=== PATIENT | female | born 1970 | race Caucasian/White ===

== ENCOUNTER → 2016-10-30 | Outpatient (CLI) | payer OTHER ==
--- NOTE | 2016-10-30 11:06 | XR ---
EXAMINATION TYPE: XR lumbosacral spine min 4V DATE OF EXAM: 10/30/2016 10:48 AM COMPARISON: NONE HISTORY: Low back pain TECHNIQUE: 5 view lumbar spine FINDINGS: Facets are normal. Disc heights are preserved. Vertebral body heights are preserved. Mild s pondylosis is present. There is side bending towards the left. IMPRESSION: 1. No acute osseous abnormality.
== END | disposition home or self-care (01) ==
LOC: RADXRMAIN 10:20
PROVIDERS: ATTEND Family Medicine
DX: M54.5 Low back pain (principal)
CPT/HCPCS: 72110

== ENCOUNTER 2016-11-11 16:59 | Emergency (ER) | payer OTHER ==
[2016-11-11 17:11] VITALS: BP 158/100; PULSE 68; RESP 16; TEMP 99.7
[2016-11-11] MEDS ORDERED: KETOROLAC 60 MG/2 ML VIAL IM STA (18:17)
--- NOTE | 2016-11-11 18:19 | ED ---
General Adult HPI - General Chief complaint: Back Pain/Injury Stated complaint: Back Pain, Abd pain, headache Time Seen by Provider: 11/11/16 17:55 Source: patient, RN notes reviewed Mode of arrival: wheelchair Limitations: no limitations - History of Present Illness Initial comments: Patient for a 46-year-old female who presents emergency room today with chief complaint of chronic pain. She does admit to chronic back, abdominal, and migraine headaches. She states that she's had all these symptoms over the last several years. She states she has follow-up with both specialist and her family doctor. States that she has been using medications as prescribed. She states that she is been having increased pain in her back also have an abscess diarrhea. Doesn't that history IBS. Admits to headaches consistent with her migraines. Patient's that bedside stating that he brought her here to the emergency room today she did not white count. States that she seemed to be more pain today. Patient admits that there is no medication that seems to help her. She states she's also had some medications here in the hospital which seemed to do little to help her. She denies any bowel or bladder incontinence retention. Denies any saddle anesthesia. States she is scheduled have a new MRI of her back next week. Injury or trauma or falls. Denies any other complaints. She states she states all symptoms are chronic and there is nothing new today. Patient denies any recent fever, chills, shortness of breath , chest pain, nausea or vomiting, dysuria or hematuria, constipation, headaches or visual changes, or any other complaints. - Related Data Home Medications Medication Instructions Recorded Confirmed Albuterol Nebulized [Ventolin 1 applic INHALATION DIRECTED PRN 03/28/1508/21 Nebulized] Albuterol Sulfate [Proair Hfa] 2 puff INHALATION DIRECTED PRN 03/28/15 Baclofen [Lioresal] 10 mg PO BID 03/28/15 08/22/15 Dicyclomine [Bentyl] 20 mg PO TID 03/28/15 08/22/15 Donepezil [Aricept] 10 mg PO BID 03/28/15 08/22/15 Ibuprofen [Motrin] 800 mg PO BID 03/28/15 08/22/15 Loperamide [Imodium] 2 mg PO BID 03/28/15 08/22/15 OXcarbazepine [Trileptal] 150 mg PO BID 03/28/15 08/22/15 OXcarbazepine [Trileptal] 300 mg PO BID 03/28/15 08/22/15 Primidone [Mysoline] 100 mg PO BID 03/28/15 08/22/15 Propranolol HCl [Inderal LA] 80 mg PO QAM 03/28/15 08/22/15 SUMAtriptan SUCCINATE [Imitrex] 100 mg PO DIRECTED PRN 03/28/15 08/22/15 Vilazodone HCl [Viibryd] 40 mg PO HS 03/28/15 08/22/15 clonazePAM [KlonoPIN] 0.5 mg PO TID 03/28/15 08/22/15 rOPINIRole HCL [Requip] 0.5 mg PO HS 03/28/15 08/22/15 risperiDONE [RisperDAL] 2 mg PO HS 03/28/15 08/22/15 Previous Rx's Medication Instructions Recorded Famotidine [Pepcid] 20 mg PO BID #30 tablet 08/22/15 Naproxen [Naprosyn] 500 mg PO Q12HR #60 tab 08/22/15 hydrOXYzine HCL [Atarax] 25 mg PO TID #30 tab 08/22/15 predniSONE 50 mg PO DAILY #5 tab 08/22/15 Allergies Allergy/AdvReac Type Severity Reaction Status Date / Time varenicline tartrate Allergy Hallucinati Verified 11/11/16 17:11 [From Chantix] ons Review of Systems ROS Statement: Those systems with pertinent positive or pertinent negative responses have been documented in the HPI. ROS Other: All systems not noted in ROS Statement are negative. Past Medical History Past Medical History: Fibromyalgia, Seizure Disorder Additional Past Medical History / Comment(s): chronic back pain,migraine ,RSD, DDD,IBS History of Any Multi-Drug Resistant Organisms: None Reported Past Surgical History: Orthopedic Surgery, Tubal Ligation Additional Past Surgical History / Comment(s): right ankle Past Psychological History: Bipolar, Depression Smoking Status: Current every day smoker Past Alcohol Use History: None Reported Past Drug Use History: Marijuana General Exam - General Exam Comments Initial Comments: General: The patient is awake and alert, in no distress, and does not appear acutely ill. Eye: Pupils are equal, round and reactive to light, extra-ocular movements are intact. No nystagmus. There is normal conjunctiva bilaterally. No signs of icterus. Ears, nose, mouth and throat: There are moist mucous membranes and no oral lesions. Neck: The neck is supple, there is no tenderness or JVD. Cardiovascular: There is a regular rate and rhythm. No murmur, rub or gallop is appreciated. Respiratory: Lungs are clear to auscultation, respirations are non-labored, breath sounds are equal. No wheezes, stridor, rales, or rhonchi. Musculoskeletal: Normal ROM, no tenderness. Strength 5/5. Sensation intact. Pulses equal bilaterally 2+. Neurological: A&O x 3. CN II-XII intact, There are no obvious motor or sensory deficits. Coordination appears grossly intact. Speech is normal. Skin: Skin is warm and dry and no rashes or lesions are noted. Psychiatric: Cooperative, appropriate mood & affect, normal judgment. Limitations: no limitations Course Vital Signs 11/11/16 17:07 Temperature 99.7 F H Pulse Rate 68 Respiratory 16 Rate Blood Pressure 158/100 O2 Sat by Pulse 99 Oximetry Medical Decision Making - Medical Decision Making PATIENT have a patient here the emergency room for treatment options here in the emergency room. Patient does admit to a chronic symptoms that is nothing new. She is advised that she does need follow-up family doctor and also specialist. She states she does have an appointment set up. Patient states she is willing to try Toradol shot for her pain and symptoms. She is advised return for any other concerns. Disposition Clinical Impression: Chronic pain Disposition: HOME SELF-CARE Condition: Good Instructions: Chronic Back Pain (ED) Additional Instructions: Please follow-up with family doctor in the next 2 days. Please return to emergency room if the symptoms increase or worsen or for any other concerns. Referrals: Saul Muniz MD [Primary Care Provider] - 1-2 days Time of Disposition: 18:18
== END 2016-11-11 19:09 | disposition home or self-care (01) ==
LOC: EC 16:59
DX: G89.29 Other chronic pain (principal); M54.9 Dorsalgia, unspecified; R10.9 Unspecified abdominal pain; R51 Headache; G40.909 Epilepsy, unspecified, not intractable, without status epilepticus; F31.9 Bipolar disorder, unspecified; F17.200 Nicotine dependence, unspecified, uncomplicated; Z79.1 Long term (current) use of non-steroidal anti-inflammatories (NSAID); Z79.899 Other long term (current) drug therapy; Z88.8 Allergy status to other drugs, medicaments and biological substances
CPT/HCPCS: 99283; 96372; J1885

== ENCOUNTER → 2016-11-18 | Outpatient (CLI) | payer OTHER ==
--- NOTE | 2016-11-18 23:20 | MR ---
EXAMINATION TYPE: MR lumbar spine wo con DATE OF EXAM: 11/18/2016 COMPARISON: 07/19/2015 HISTORY: Severe back pain for a couple of years. Previous MRI on PACS 07/2015 TECHNIQUE: Multiplanar, multisequence images of the lumbar spine were acquired. Findings Lumbar vertebra have normal alignment. There is narrowing at L4-5 and L5-S1 disc spaces with decrease d signal in the disks. There is mild posterior disc herniation at L5-S1 into the spinal canal. Lumbar nerve roots appear normal. There is mild narrowing of the L4-5 and L5-S1 neural foramina due to disc space narrowing and facet arthropathy. There is no paraspinal mass. There is no compression fracture . I see no focal bone destruction. There is mild patchy decreased signal in the inferior L5 vertebral body probably due to sclerosis and reactive changes. IMPRESSION: Spondylotic changes at L4-5 and L5-S1. Small anterior and posterior disc herniation at L5-S1 without significant impingement on the spinal canal. There is mild neural foraminal narrowing at L4-5 and L5- S1 on the left side more than the right due to disc space narrowing and facet arthropathy. This is si milar to old exam. No fracture.
== END | disposition home or self-care (01) ==
LOC: RADMRIMAIN 20:34
PROVIDERS: ATTEND Family Medicine
DX: M48.06 Spinal stenosis, lumbar region (principal); M99.73 Connective tissue and disc stenosis of intervertebral foramina of lumbar region; M47.816 Spondylosis without myelopathy or radiculopathy, lumbar region; M46.96 Unspecified inflammatory spondylopathy, lumbar region
CPT/HCPCS: 72148

== ENCOUNTER 2016-12-05 04:45 | Emergency (ER) | payer OTHER ==
[2016-12-05 04:49] VITALS: TEMP 98.1
[2016-12-05] MEDS ORDERED: SODIUM CHLORIDE 0.9% 1,000 ML IV STA (05:04)
[2016-12-05] MEDS ORDERED: diphenhydrAMINE 50 MG/ML 1 ML VIAL IVP STA (05:04)
[2016-12-05] MEDS ORDERED: RX INFO: IV CONTRAST WAS GIVEN 1 EACH MISC MISCELLANE PRN (05:04)
[2016-12-05] MEDS ORDERED: FAMOTIDINE 20 MG/2 ML VIAL IV STA (05:04)
[2016-12-05] MEDS ORDERED: methylPREDNISolone SOD SUCCI 125 MG/2 ML VIAL IV STA (05:04)
--- NOTE | 2016-12-05 05:06 | ED ---
General Adult HPI - General Chief complaint: ENT Stated complaint: FACIAL SWELLING Time Seen by Provider: 12/05/16 05:02 Source: patient, RN notes reviewed, old records reviewed Mode of arrival: wheelchair Limitations: no limitations - History of Present Illness Initial comments: This is a 46-year-old female here for evaluation. This patient is safe for evaluation of pain and edema, swelling. Patient has right-sided facial swelling. She woke with the symptoms 9, patient denies any injury. She denies fevers, nausea pain mild anterior pain. Patient states she is having difficulty sleeping cololysis difficulty sleeping, is very restless, states that she noticed her right third patient for full is very swollen, tingling. She also having tingling in her right hand right arm, tingling in her right hip right leg. No change in medications - Related Data Home Medications Medication Instructions Recorded Confirmed Albuterol Sulfate [Proair Hfa] 2 puff INHALATION RT-Q6H PRN 03/28/15 12/05/16 Dicyclomine [Bentyl] 40 mg PO QID 03/28/15 12/05/16 Loperamide [Imodium] 4 mg PO QID PRN 03/28/15 12/05/16 Primidone [Mysoline] 100 mg PO BID 03/28/15 12/05/16 SUMAtriptan SUCCINATE [Imitrex] 100 mg PO BID PRN 03/28/15 12/05/16 clonazePAM [KlonoPIN] 0.5 mg PO TID 03/28/15 12/05/16 rOPINIRole HCL [Requip] 0.5 mg PO HS 03/28/15 12/05/16 Cyclobenzaprine [Flexeril] 10 mg PO TID 11/11/16 12/05/16 Desvenlafaxine Succinate [Pristiq] 100 mg PO DAILY 11/11/16 12/05/16 Esomeprazole Magnesium [NexIUM] 40 mg PO DAILY 11/11/16 12/05/16 Gabapentin [Neurontin] 300 mg PO TID 11/11/16 12/05/16 Propranolol HCl [Propranolol HCl 60 mg PO DAILY 11/11/16 12/05/16 ER] HYDROcodone/APAP 5-325MG [[place] 1 tab PO Q6HR PRN 12/05/16 12/05/16 5-325] Allergies Allergy/AdvReac Type Severity Reaction Status Date / Time varenicline tartrate AdvReac Hallucinati Verified 12/05/16 04:49 [From Chantix] ons Review of Systems ROS Statement: Those systems with pertinent positive or pertinent negative responses have been documented in the HPI. ROS Other: All systems not noted in ROS Statement are negative. Past Medical History Past Medical History: Fibromyalgia, Seizure Disorder Additional Past Medical History / Comment(s): chronic back pain,migraine ,RSD, DDD,IBS History of Any Multi-Drug Resistant Organisms: None Reported Past Surgical History: Orthopedic Surgery, Tubal Ligation Additional Past Surgical History / Comment(s): right ankle Past Psychological History: Bipolar, Depression Smoking Status: Current every day smoker Past Alcohol Use History: None Reported Past Drug Use History: Marijuana General Exam - General Exam Comments Initial Comments: Likely swelling of right parotid gland Limitations: no limitations General appearance: alert, in no apparent distress Head exam: Present: atraumatic, normocephalic, normal inspection, other (right facial edema) Eye exam: Present: normal appearance, PERRL, EOMI. Absent: scleral icterus, conjunctival injection, periorbital swelling ENT exam: Present: normal exam, mucous membranes moist Neck exam: Present: normal inspection. Absent: tenderness, meningismus, lymphadenopathy Respiratory exam: Present: normal lung sounds bilaterally. Absent: respiratory distress, wheezes, rales, rhonchi, stridor Cardiovascular Exam: Present: regular rate, normal rhythm, normal heart sounds. Absent: systolic murmur, diastolic murmur, rubs, gallop, clicks GI/Abdominal exam: Present: soft, normal bowel sounds. Absent: distended, tenderness, guarding, rebound, rigid Extremities exam: Present: normal inspection, full ROM, normal capillary refill. Absent: tenderness, pedal edema, joint swelling, calf tenderness Back exam: Present: normal inspection Neurological exam: Present: alert, oriented X3, CN II-XII intact Psychiatric exam: Present: normal affect, normal mood Skin exam: Present: warm, dry, intact, normal color. Absent: rash Course Vital Signs 12/05/16 12/05/16 04:46 06:03 Temperature 98.1 F Pulse Rate 87 73 Respiratory 24 18 Rate Blood Pressure 106/57 123/73 O2 Sat by Pulse 98 96 Oximetry EKG Findings - EKG Comments: EKG Findings:: EKG shows normal sinus rhythm rate of 88, [place] 166, QRS 94, QTC 488 Medical Decision Making - Medical Decision Making 46 female in the ER for evaluation of right-sided facial swelling, acute parotitis. Patient will be admitted for IV antibiotics - Lab Data Result diagrams: 12/05/16 05:20 12/05/16 05:20 Lab Results 12/05/16 12/05/16 12/05/16 Range/Units 05:20 05:20 05:20 WBC 6.5 (3.8-10.6) k/uL RBC 4.52 (3.80-5.40) m/uL Hgb 12.7 (11.4-16.0) gm/dL Hct 38.6 (34.0-46.0) % MCV 85.4 (80.0-100.0) fL MCH 28.0 (25.0-35.0) pg MCHC 32.8 (31.0-37.0) g/dL RDW 14.0 (11.5-15.5) % Plt Count 439 (150-450) k/uL Neutrophils % 50 % Lymphocytes % 35 % Monocytes % 7 % Eosinophils % 4 % Basophils % 1 % Neutrophils # 3.3 (1.3-7.7) k/uL Lymphocytes # 2.3 (1.0-4.8) k/uL Monocytes # 0.5 (0-1.0) k/uL Eosinophils # 0.3 (0-0.7) k/uL Basophils # 0.1 (0-0.2) k/uL Sodium 140 (137-145) mmol/L Potassium 4.7 (3.5-5.1) mmol/L Chloride 109 H (98-107) mmol/L Carbon Dioxide 17 L (22-30) mmol/L Anion Gap 14 mmol/L BUN 3 L (7-17) mg/dL Creatinine 0.57 (0.52-1.04) mg/dL Est GFR (MDRD) Af Amer >60 (>60 ml/min/1.73 sqM) Est GFR (MDRD) Non-Af >60 (>60 ml/min/1.73 sqM) Glucose 87 (74-99) mg/dL Calcium 9.2 (8.4-10.2) mg/dL Phosphorus 3.6 (2.5-4.5) mg/dL Magnesium 2.1 (1.6-2.3) mg/dL Total Bilirubin 0.4 (0.2-1.3) mg/dL AST 34 (14-36) U/L ALT 33 (9-52) U/L Alkaline Phosphatase 94 (38-126) U/L Total Creatine Kinase 86 (30-135) U/L CK-MB (CK-2) 0.8 (0.0-2.4) ng/mL CK-MB (CK-2) Rel Index 0.9 Troponin I <0.012 (0.000-0.034) ng/mL Total Protein 7.1 (6.3-8.2) g/dL Albumin 3.8 (3.5-5.0) g/dL - Radiology Data Radiology results: report reviewed (CT soft tissue neck shows parotitis), image reviewed Disposition Clinical Impression: Parotitis, acute, Right facial swelling Disposition: HOME SELF-CARE Condition: Good Instructions: Edema (ED) Referrals: Saul Muniz MD [Primary Care Provider] - 1-2 days
[2016-12-05 05:51] LABS: Basophils # (A) 0.1 k/uL (0-0.2); Basophils % (A) 1 %; CH 27.4; CHCM 32.2; Eosinophils # (A) 0.3 k/uL (0-0.7); Eosinophils % (A) 4 %; HCT 38.6 % (34.0-46.0); HDW 2.59; HGB 12.7 gm/dL (11.4-16.0); Luc # (Auto) 0.18; Luc % (Auto) 3; Lymphocytes # (A) 2.3 k/uL (1.0-4.8); Lymphocytes % (A) 35 %; MCHC 32.8 g/dL (31.0-37.0); MCV 85.4 fL (80.0-100.0); Mean Platelet Volume 7.1; Monocytes # (A) 0.5 k/uL (0-1.0); Monocytes % (A) 7 %; Neutrophils # (A) 3.3 k/uL (1.3-7.7); Neutrophils % (A) 50 %; RBC 4.52 m/uL (3.80-5.40); WBC 6.5 k/uL (3.8-10.6); WBC (Perox) 6.31
[2016-12-05] MEDS ORDERED: MORPHINE SULFATE 10 MG/ML SYRINGE IVP STA (05:56)
[2016-12-05 06:08] LABS: ALT 33 U/L (9-52); AST 34 U/L (14-36); Alkaline Phosphatase 94 U/L (38-126); Anion Gap 14 mmol/L; Blood Urea Nitrogen 3 mg/dL (7-17); Calcium 9.2 mg/dL (8.4-10.2); Carbon Dioxide 17 mmol/L (22-30); Chloride 109 mmol/L (98-107); Glucose 87 mg/dL (74-99); Magnesium 2.1 mg/dL (1.6-2.3); Non-African American GFR(MDRD) >60 (>60 ml/min/1.73 sqM); Phosphorous 3.6 mg/dL (2.5-4.5); Potassium 4.7 mmol/L (3.5-5.1); Sodium 140 mmol/L (137-145); Total Bilirubin 0.4 mg/dL (0.2-1.3); Total Protein 7.1 g/dL (6.3-8.2)
[2016-12-05 06:10] LABS: Creatine Kinase 86 U/L (30-135)
[2016-12-05 06:23] LABS: Creatine Kinase MB 0.8 ng/mL (0.0-2.4); Troponin I <0.012 ng/mL (0.000-0.034)
--- NOTE | 2016-12-05 07:20 | CT ---
EXAM: CT Neck With Intravenous Contrast. CLINICAL HISTORY: Reason: edema TECHNIQUE: Axial computed tomography images of the neck with intravenous contrast. CTDI is 15.8 mGy and DLP is 422.6 mGy-cm This CT exam was performed using one or more of the following dose reduction techniques: automated exposure control, adjustment of the mA and/or kV according to patient size, and/or use of iterative reconstruction technique. COMPARISON: No relevant prior studies available. FINDINGS: Nasopharynx: Unremarkable. Oropharynx: Unremarkable. No significant tonsillar enlargement. No peritonsillar abscess. Hypopharynx: Unremarkable. Larynx: Unremarkable. Normal epiglottis. Trachea: Unremarkable. Retropharyngeal space: Unremarkable. Submandibular/parotid glands: There is mild asymmetric enlargement of the right parotid gland with heterogeneous attenuation, as well as adjacent fat stranding and fluid. Findings suggestive of a right parotitis no evidence of parotid duct dilatation. No infiltrative involvement of the skein yarn drier or carotid space. No evidence of abscess. Lymph nodes: Unremarkable. No lymphadenopathy. Thyroid: Round 1 cm rounded hypodensity within the left thyroid lobe, most likely a colloid cyst. Bones: No acute fracture. Lung apices: Nodular opacities within the left upper lobe likely postinflammatory. If the patient is for some reason at high risk for pulmonary malignancy consider follow-up CT of the chest in 12 months to document stability. IMPRESSION: Mildly enlarged, heterogeneous right parotid gland with adjacent infiltrative changes, suggestive of an inflammatory/infectious parotitis. Please correlate with site of patient's symptoms. Alternatively findings may be due to a cellulitis.
[2016-12-05] MEDS ORDERED: IV VANCOMYCIN PER PHARMACY 1 EACH MISC MISCELLANE PRN (07:27)
[2016-12-05] MEDS ORDERED: AMPICILLIN-SULBACTAM 3 GM in SODIUM CHLORIDE 0.9% 100 ML IVPB STA (07:27)
[2016-12-05] MEDS ORDERED: VANCOMYCIN 1,500 MG in SODIUM CHLORIDE 0.9% 250 ML IVPB STA (07:30)
[2016-12-05] MEDS ORDERED: SULFAMETH-TMP DS STARTER PACK 2 TAB BTL PO STA (07:35)
[2016-12-05] MEDS ORDERED: SULFAMETHOX-TMP 800-160MG 1 EACH TAB PO STA (07:35)
[2016-12-05 07:58] VITALS: BP 115/81; PULSE 79; RESP 16
[2016-12-05] MEDS ORDERED: VANCOMYCIN 1,500 MG in SODIUM CHLORIDE 0.9% 250 ML IVPB SCH (18:00)
== END 2016-12-05 08:55 | disposition home or self-care (01) ==
LOC: EC 04:45
DX: K11.21 Acute sialoadenitis (principal); R60.0 Localized edema; K58.9 Irritable bowel syndrome, unspecified; G40.909 Epilepsy, unspecified, not intractable, without status epilepticus; M79.7 Fibromyalgia; G89.29 Other chronic pain; F32.9 Major depressive disorder, single episode, unspecified; F17.200 Nicotine dependence, unspecified, uncomplicated; Z79.899 Other long term (current) drug therapy; Z88.8 Allergy status to other drugs, medicaments and biological substances
CPT/HCPCS: 36415; 93005; 80053; 82150; 82550; 82553; 83735; 84100; 84484; 85025; 70491; 99284; 96365; 96375 ×4; 96361 ×2; J1200; J2930; J2270; Q9967; J0295

== ENCOUNTER 2016-12-19 11:09 | Emergency (ER) | payer OTHER ==
[2016-12-19] MEDS ORDERED: FUROSEMIDE 10 MG/ML 4 ML VIAL IV STA (11:54)
[2016-12-19] MEDS ORDERED: KETOROLAC 30 MG/ML 1 ML VIAL IVP STA (11:55)
--- NOTE | 2016-12-19 12:08 | ED ---
SOB HPI - General Stated Complaint: feet swelling Time Seen by Provider: 12/19/16 11:32 Source: patient, RN notes reviewed Mode of arrival: wheelchair Limitations: no limitations - History of Present Illness Initial Comments: This is a 46-year-old female who presents with complaints of peripheral edema and is getting worse over last 2 days she also complains of increased pain in her legs and increase of her chronic low back pain. She also states she's had significant weight gain over the last several months. She does have RSD with a brace that she wears on her right ankle. She states she has exertional dyspnea. She denies any chest pain fevers chills or sweats. She denies any change in her ability to urinate. She states she recently had a blood infection for which she was on antibiotics which seemed to help the. MD Complaint: shortness of breath - Related Data Home Medications Medication Instructions Recorded Confirmed Albuterol Sulfate [Proair Hfa] 2 puff INHALATION RT-Q6H PRN 03/28/15 12/19/16 Loperamide [Imodium] 4 mg PO QID PRN 03/28/15 12/19/16 Primidone [Mysoline] 100 mg PO BID 03/28/15 12/19/16 SUMAtriptan SUCCINATE [Imitrex] 100 mg PO BID PRN 03/28/15 12/19/16 rOPINIRole HCL [Requip] 0.5 mg PO HS 03/28/15 12/19/16 Cyclobenzaprine [Flexeril] 10 mg PO TID 11/11/16 12/19/16 Desvenlafaxine Succinate [Pristiq] 100 mg PO DAILY 11/11/16 12/19/16 Esomeprazole Magnesium [NexIUM] 40 mg PO DAILY 11/11/16 12/19/16 Gabapentin [Neurontin] 300 mg PO TID 11/11/16 12/19/16 Propranolol HCl [Propranolol HCl 60 mg PO DAILY 11/11/16 12/19/16 ER] HYDROcodone/APAP 5-325MG [[place] 1 tab PO Q6HR PRN 12/05/16 12/19/16 5-325] Butalb/Acetaminophen/Caffeine 1 tab PO Q6H PRN 12/19/16 12/19/16 [Fioricet 50-325-40] Previous Rx's Medication Instructions Recorded Furosemide [Lasix] 20 mg PO BID #14 tab 12/19/16 Allergies Allergy/AdvReac Type Severity Reaction Status Date / Time bee pollen Allergy Unknown Verified 12/19/16 12:09 tomato AdvReac Chest Pain Verified 12/19/16 12:09 varenicline tartrate AdvReac Hallucinati Verified 12/19/16 12:09 [From Chantix] ons [place] AdvReac Chest Pain Uncoded 12/19/16 11:25 [place] AdvReac Chest Pain Uncoded 12/19/16 11:25 Review of Systems ROS Statement: Those systems with pertinent positive or pertinent negative responses have been documented in the HPI. ROS Other: All systems not noted in ROS Statement are negative. Past Medical History Past Medical History: Fibromyalgia, Seizure Disorder Additional Past Medical History / Comment(s): chronic back pain,migraine ,RSD, DDD,IBS History of Any Multi-Drug Resistant Organisms: None Reported Past Surgical History: Orthopedic Surgery, Tubal Ligation Additional Past Surgical History / Comment(s): right ankle Past Psychological History: Bipolar, Depression Smoking Status: Current every day smoker Past Alcohol Use History: None Reported Past Drug Use History: Marijuana General Exam - General Exam Comments Initial Comments: This is a well-developed well-nourished awake alert oriented 3 female Limitations: no limitations General appearance: alert, anxious, in distress Head exam: Present: atraumatic, normocephalic, normal inspection Eye exam: Present: normal appearance, PERRL, EOMI. Absent: scleral icterus, conjunctival injection, periorbital swelling ENT exam: Present: normal exam, mucous membranes moist Neck exam: Present: normal inspection. Absent: tenderness, meningismus, lymphadenopathy Respiratory exam: Present: normal lung sounds bilaterally. Absent: respiratory distress, wheezes, rales, rhonchi, stridor Cardiovascular Exam: Present: regular rate, normal rhythm, normal heart sounds. Absent: systolic murmur, diastolic murmur, rubs, gallop, clicks GI/Abdominal exam: Present: soft, normal bowel sounds. Absent: distended, tenderness, guarding, rebound, rigid Extremities exam: Present: normal inspection, full ROM, normal capillary refill , pedal edema (Bilateral pedal edema to the knees.). Absent: tenderness, joint swelling, calf tenderness Back exam: Present: normal inspection, tenderness, paraspinal tenderness ( Paraspinous lumbar tenderness no step-off or crepitation no spinous process tenderness) Neurological exam: Present: alert, oriented X3, CN II-XII intact Psychiatric exam: Present: normal affect, normal mood Skin exam: Present: warm, dry, intact, normal color. Absent: rash Course Vital Signs 12/19/16 12/19/16 12/19/16 11:25 12:34 14:50 Temperature 98.0 F 97.8 F 97.8 F Pulse Rate 83 75 77 Respiratory 17 18 18 Rate Blood Pressure 116/76 134/80 120/71 O2 Sat by Pulse 99 100 98 Oximetry Medical Decision Making - Medical Decision Making I did discuss findings with the patient family. Patient will be discharged she will be placed on diuretics she is a follow-up with her doctor next week and return when necessary - Lab Data Result diagrams: 12/19/16 12:40 12/19/16 12:40 Lab Results 12/19/16 12/19/16 12/19/16 Range/Units 12:40 12:40 12:40 WBC 7.0 (3.8-10.6) k/uL RBC 4.46 (3.80-5.40) m/uL Hgb 12.3 (11.4-16.0) gm/dL Hct 37.8 (34.0-46.0) % MCV 84.8 (80.0-100.0) fL MCH 27.6 (25.0-35.0) pg MCHC 32.6 (31.0-37.0) g/dL RDW 13.8 (11.5-15.5) % Plt Count 379 (150-450) k/uL Neutrophils % 63 % Lymphocytes % 27 % Monocytes % 5 % Eosinophils % 3 % Basophils % 1 % Neutrophils # 4.4 (1.3-7.7) k/uL Lymphocytes # 1.9 (1.0-4.8) k/uL Monocytes # 0.4 (0-1.0) k/uL Eosinophils # 0.2 (0-0.7) k/uL Basophils # 0.1 (0-0.2) k/uL Hypochromasia Slight PT (9.0-12.0) sec INR (<1.1) APTT (22.0-30.0) sec D-Dimer (<0.60) mg/L FEU Sodium 137 (137-145) mmol/L Potassium 4.4 (3.5-5.1) mmol/L Chloride 105 (98-107) mmol/L Carbon Dioxide 25 (22-30) mmol/L Anion Gap 7 mmol/L BUN 3 L (7-17) mg/dL Creatinine 0.54 (0.52-1.04) mg/dL Est GFR (MDRD) Af Amer >60 (>60 ml/min/1.73 sqM) Est GFR (MDRD) Non-Af >60 (>60 ml/min/1.73 sqM) Glucose 70 L (74-99) mg/dL Calcium 9.1 (8.4-10.2) mg/dL Magnesium 1.9 (1.6-2.3) mg/dL Total Bilirubin 0.2 (0.2-1.3) mg/dL AST 19 (14-36) U/L ALT 30 (9-52) U/L Alkaline Phosphatase 85 (38-126) U/L Total Creatine Kinase 52 (30-135) U/L CK-MB (CK-2) 0.7 (0.0-2.4) ng/mL CK-MB (CK-2) Rel Index 1.3 Troponin I <0.012 (0.000-0.034) ng/mL NT-Pro-B Natriuret Pep pg/mL Total Protein 6.6 (6.3-8.2) g/dL Albumin 3.7 (3.5-5.0) g/dL 12/19/16 12/19/16 Range/Units 12:40 12:40 WBC (3.8-10.6) k/uL RBC (3.80-5.40) m/uL Hgb (11.4-16.0) gm/dL Hct (34.0-46.0) % MCV (80.0-100.0) fL MCH (25.0-35.0) pg MCHC (31.0-37.0) g/dL RDW (11.5-15.5) % Plt Count (150-450) k/uL Neutrophils % % Lymphocytes % % Monocytes % % Eosinophils % % Basophils % % Neutrophils # (1.3-7.7) k/uL Lymphocytes # (1.0-4.8) k/uL Monocytes # (0-1.0) k/uL Eosinophils # (0-0.7) k/uL Basophils # (0-0.2) k/uL Hypochromasia PT 9.7 (9.0-12.0) sec INR 0.9 (<1.1) APTT 22.7 (22.0-30.0) sec D-Dimer 0.98 H (<0.60) mg/L FEU Sodium (137-145) mmol/L Potassium (3.5-5.1) mmol/L Chloride (98-107) mmol/L Carbon Dioxide (22-30) mmol/L Anion Gap mmol/L BUN (7-17) mg/dL Creatinine (0.52-1.04) mg/dL Est GFR (MDRD) Af Amer (>60 ml/min/1.73 sqM) Est GFR (MDRD) Non-Af (>60 ml/min/1.73 sqM) Glucose (74-99) mg/dL Calcium (8.4-10.2) mg/dL Magnesium (1.6-2.3) mg/dL Total Bilirubin (0.2-1.3) mg/dL AST (14-36) U/L ALT (9-52) U/L Alkaline Phosphatase (38-126) U/L Total Creatine Kinase (30-135) U/L CK-MB (CK-2) (0.0-2.4) ng/mL CK-MB (CK-2) Rel Index Troponin I (0.000-0.034) ng/mL NT-Pro-B Natriuret Pep 299 pg/mL Total Protein (6.3-8.2) g/dL Albumin (3.5-5.0) g/dL - EKG Data -: EKG Interpreted by Me EKG shows normal: sinus rhythm, axis, intervals, QRS complexes, ST-T waves ( Normal sinus rhythm of 78 MN interval 164 QRS 72 QT/QTC of 460/474 this is a normal-appearing EKG.) Rate: normal, tachycardia - Radiology Data Radiology results: report reviewed (I did review the imaging and reports no acute findings.), image reviewed Disposition Clinical Impression: Peripheral edema Disposition: HOME SELF-CARE Condition: Good Instructions: Leg Edema (ED) Prescriptions: Furosemide [Lasix] 20 mg PO BID #14 tab Referrals: Saul Muniz MD [Primary Care Provider] - 1-2 days
[2016-12-19 12:45] VITALS: RESP 18
[2016-12-19 13:11] LABS: Basophils # (A) 0.1 k/uL (0-0.2); Basophils % (A) 1 %; CH 26.5; CHCM 31.4; Eosinophils # (A) 0.2 k/uL (0-0.7); Eosinophils % (A) 3 %; HCT 37.8 % (34.0-46.0); HGB 12.3 gm/dL (11.4-16.0); Hypochromasia Slight; Luc # (Auto) 0.12; Luc % (Auto) 2; Lymphocytes # (A) 1.9 k/uL (1.0-4.8); Lymphocytes % (A) 27 %; MCH 27.6 pg (25.0-35.0); MCHC 32.6 g/dL (31.0-37.0); MCV 84.8 fL (80.0-100.0); Mean Platelet Volume 6.6; Monocytes # (A) 0.4 k/uL (0-1.0); Monocytes % (A) 5 %; Neutrophils # (A) 4.4 k/uL (1.3-7.7); Neutrophils % (A) 63 %; RBC 4.46 m/uL (3.80-5.40); RDW 13.8 % (11.5-15.5); WBC (Perox) 6.96
[2016-12-19 13:14] LABS: ALT 30 U/L (9-52); AST 19 U/L (14-36); Alkaline Phosphatase 85 U/L (38-126); Anion Gap 7 mmol/L; Blood Urea Nitrogen 3 mg/dL (7-17); Calcium 9.1 mg/dL (8.4-10.2); Carbon Dioxide 25 mmol/L (22-30); Chloride 105 mmol/L (98-107); Glucose 70 mg/dL (74-99); Magnesium 1.9 mg/dL (1.6-2.3); Non-African American GFR(MDRD) >60 (>60 ml/min/1.73 sqM); Potassium 4.4 mmol/L (3.5-5.1); Sodium 137 mmol/L (137-145); Total Bilirubin 0.2 mg/dL (0.2-1.3); Total Protein 6.6 g/dL (6.3-8.2)
[2016-12-19 13:15] LABS: INR 0.9 (<1.1); Partial Thromboplastin Time 22.7 sec (22.0-30.0); Prothrombin Time 9.7 sec (9.0-12.0)
[2016-12-19 13:24] LABS: Creatine Kinase 52 U/L (30-135)
[2016-12-19 13:36] LABS: Creatine Kinase MB 0.7 ng/mL (0.0-2.4); Troponin I <0.012 ng/mL (0.000-0.034)
--- NOTE | 2016-12-19 13:47 | XR ---
EXAMINATION TYPE: XR chest 2V DATE OF EXAM: 12/19/2016 COMPARISON: None HISTORY: 46-year-old female difficulty breathing TECHNIQUE: Frontal and lateral views FINDINGS: Heart is upper limits of normal in size. Aorta and pulmonary vasculature within normal limits. Mild i nterstitial prominence has a chronic appearance. Strandy atelectasis in the lower lungs. No consolida tion or pleural effusion. IMPRESSION: Borderline heart size. Chronic appearing changes. No acute process seen.
--- NOTE | 2016-12-19 14:51 | US ---
EXAMINATION TYPE: US venous doppler duplex LE BI DATE OF EXAM: 12/19/2016 2:35 PM COMPARISON: NONE CLINICAL HISTORY: 46-year-old female with Pain. SIDE PERFORMED: Bilateral TECHNIQUE: The lower extremity deep venous system is examined utilizing real time linear array sonog jolene with graded compression, doppler sonography and color-flow sonography. FINDINGS: VESSELS IMAGED: External Iliac Vein (EIV) Common Femoral Vein Deep Femoral Vein Greater Saphenous Vein * Femoral Vein Popliteal Vein Small Saphenous Vein * Proximal Calf Veins (* superficial vessels) Right Leg: Negative for DVT Left Leg: Negative for DVT IMPRESSION: No evidence for DVT within the bilateral lower extremities imaged from the groin to the upper calves.
[2016-12-19 16:33] VITALS: BP 118/75; PULSE 82; TEMP 98.1
== END 2016-12-19 16:35 | disposition home or self-care (01) ==
LOC: EC 11:09
DX: R60.0 Localized edema (principal); M54.5 Low back pain; G89.29 Other chronic pain; G40.909 Epilepsy, unspecified, not intractable, without status epilepticus; M79.7 Fibromyalgia; F31.9 Bipolar disorder, unspecified; F17.200 Nicotine dependence, unspecified, uncomplicated; Z88.8 Allergy status to other drugs, medicaments and biological substances; Z91.018 Allergy to other foods; Z91.02 Food additives allergy status; Z79.899 Other long term (current) drug therapy
CPT/HCPCS: 99284; 96374; 96375; 36415; 93005; 85379; 83880; 80053; 82550; 82553; 83735; 84484; 85025; 85610; 85730; 87040; 71020; 93970; J1940; J1885

== ENCOUNTER → 2017-05-04 | Outpatient (CLI) | payer OTHER ==
--- NOTE | 2017-05-04 16:37 | XR ---
EXAMINATION TYPE: XR lumbar spine 2 or 3V DATE OF EXAM: 05/04/2017 COMPARISON: NONE HISTORY: 46-year-old female low back pain TECHNIQUE: 3 views FINDINGS: 5 lumbar type vertebral bodies. Mild endplate spondylosis throughout. Moderate disc interspace narrow ing with endplate sclerosis at L5-S1. Facet arthropathy lower lumbar spine. Alignment is maintained a nd vertebral body heights are preserved. IMPRESSION: 1. Mild endplate spondylosis throughout, more moderate disc/endplate degenerative change at L5-S1. 2. Facet arthropathy mid to lower lumbar spine. 3. No vertebral compression collapse or malalignment.
== END ==
LOC: RADXRMAIN 11:07
PROVIDERS: ATTEND Family Medicine
DX: M51.37 Other intervertebral disc degeneration, lumbosacral region (principal); M47.816 Spondylosis without myelopathy or radiculopathy, lumbar region; M46.86 Other specified inflammatory spondylopathies, lumbar region
CPT/HCPCS: 72100

== ENCOUNTER 2017-12-30 09:55 | Emergency (ER) | payer BC, OTHER ==
[2017-12-30] MEDS ORDERED: LORazepam 2 MG/ML INJ IV STA (10:40)
[2017-12-30] MEDS ORDERED: IPRATROPIUM-ALBUTEROL 3 ML NEB INHALATION STA (10:40)
[2017-12-30] MEDS ORDERED: SODIUM CHLORIDE 0.9% 1,000 ML IV STA (10:40)
[2017-12-30] MEDS ORDERED: methylPREDNISolone SOD SUCCI 125 MG/2 ML VIAL IV STA (10:40)
[2017-12-30] MEDS ORDERED: KETOROLAC 30 MG/ML 1 ML VIAL IVP STA (10:42)
--- NOTE | 2017-12-30 11:45 | ED ---
Neck Injury/Pain HPI - General Chief Complaint: Neck Pain/Injury Stated Complaint: Neck Pain Time Seen by Provider: 12/30/17 10:09 Source: RN notes reviewed, old records reviewed Mode of arrival: ambulatory Limitations: no limitations - History of Present Illness Initial Comments: This Patient is a 47-year-old female presents emergency department today chief complaint of left-sided neck pain. Patient reports that she has been having increased shortness of breath concern for COPD exacerbation. Coughing or twisting. She reports that she came here from work due to shortness of breath and severe neck pain. She reports that she is unable to fully turn her neck. She's never had this before he does have a history of degenerative disc disease. Denies any fever or chills. The cough has been nonproductive. - Related Data Home Medications Medication Instructions Recorded Confirmed Albuterol Sulfate [Proair Hfa] 2 puff INHALATION RT-Q6H PRN 03/28/15 12/30/17 Loperamide [Imodium] 2 mg PO BID PRN 03/28/15 12/30/17 Primidone [Mysoline] 100 mg PO BID 03/28/15 12/30/17 SUMAtriptan SUCCINATE [Imitrex] 100 mg PO BID PRN 03/28/15 12/30/17 rOPINIRole HCL [Requip] 0.5 mg PO HS 03/28/15 12/30/17 Cyclobenzaprine [Flexeril] 10 mg PO TID 11/11/16 12/30/17 Desvenlafaxine Succinate [Pristiq] 100 mg PO DAILY 11/11/16 12/30/17 Esomeprazole Magnesium [NexIUM] 40 mg PO DAILY 11/11/16 12/30/17 Azelastine HCl [Optivar 0.05% 1 drop RIGHT EYE BID 05/10/17 12/30/17 Ophth Soln] Dicyclomine HCl 20 mg PO QID 05/10/17 12/30/17 Hydrocodone/Acetaminophen [Fritch 1 tab PO Q8H PRN 05/10/17 12/30/17 7.5-325] Montelukast [Singulair] 10 mg PO HS 05/10/17 12/30/17 Propranolol HCl [Inderal Xl] 80 mg PO DAILY 05/10/17 12/30/17 Benzocaine/Menthol Lozeng [Cepacol 1 each MUCOUS MEM Q4HR PRN 12/30/17 12/30/17 lozenge] Loratadine Oral Soln [Claritin 10 mg PO DAILY PRN 12/30/17 12/30/17 Oral Soln] Previous Rx's Medication Instructions Recorded guaiFENesin [Mucinex] 1,200 mg PO Q12HR PRN #20 tab 05/14/17 Diazepam [Valium] 5 mg PO TID PRN 3 Days #9 tab 12/30/17 Levofloxacin [Levaquin] 750 mg PO DAILY 3 Days #5 tab 12/30/17 predniSONE 50 mg PO TID #5 tablet 12/30/17 Allergies Allergy/AdvReac Type Severity Reaction Status Date / Time bee pollen Allergy Severe Unknown Verified 12/30/17 10:23 tomato AdvReac Severe Chest Pain Verified 12/30/17 10:23 varenicline tartrate AdvReac Severe Hallucinati Verified 12/30/17 10:23 [From Chantix] ons DULZURA AdvReac Severe Chest Pain Uncoded 12/30/17 10:03 MIRACLE WHIP AdvReac Severe Chest Pain Uncoded 12/30/17 10:03 AEROSOL AdvReac Unknown Uncoded 12/30/17 10:23 Review of Systems ROS Statement: Those systems with pertinent positive or pertinent negative responses have been documented in the HPI. ROS Other: All systems not noted in ROS Statement are negative. 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 History of Any Multi-Drug Resistant Organisms: None Reported Past Surgical History: Orthopedic Surgery, Tubal Ligation Additional Past Surgical History / Comment(s): right ankle Past Psychological History: Bipolar, Depression Smoking Status: Former smoker Past Alcohol Use History: None Reported Past Drug Use History: Marijuana - Past Family History Father Family Medical History: COPD, Coronary Artery Disease (CAD), Hearing Disorder / Deafness Mother Additional Family Medical History / Comment(s): osteoporosis, narrowing of spine , uterine proplapse, rods and screws in back General Exam - General Exam Comments Initial Comments: This is a 47-year-old female. Alert and oriented. No significant distress. Limitations: no limitations General appearance: alert, in no apparent distress Head exam: Present: atraumatic, normocephalic, normal inspection Eye exam: Present: normal appearance, PERRL, EOMI. Absent: scleral icterus, conjunctival injection, periorbital swelling ENT exam: Present: normal exam, normal oropharynx, mucous membranes moist Neck exam: Present: normal inspection, other (Evidence of torticollis over the neck. Patient's head is turned to the right.). Absent: tenderness, meningismus , lymphadenopathy Respiratory exam: Present: wheezes. Absent: normal lung sounds bilaterally, respiratory distress, rales, rhonchi, stridor Cardiovascular Exam: Present: regular rate, normal rhythm, normal heart sounds. Absent: systolic murmur, diastolic murmur, rubs, gallop, clicks GI/Abdominal exam: Present: soft, normal bowel sounds. Absent: distended, tenderness, guarding, rebound, rigid Extremities exam: Present: normal inspection, full ROM, normal capillary refill. Absent: tenderness, pedal edema, joint swelling, calf tenderness Back exam: Present: normal inspection Neurological exam: Present: alert, oriented X3, CN II-XII intact Psychiatric exam: Present: normal affect, normal mood Skin exam: Present: warm, dry, intact, normal color. Absent: rash Course Vital Signs 12/30/17 12/30/17 12/30/17 10:01 11:39 11:56 Temperature 98.1 F Pulse Rate 86 80 88 Respiratory 20 Rate Blood Pressure 137/85 O2 Sat by Pulse 99 Oximetry 12/30/17 12:58 Temperature Pulse Rate 85 Respiratory 18 Rate Blood Pressure 143/71 O2 Sat by Pulse 99 Oximetry Medical Decision Making - Medical Decision Making 47-year-old female chief complaint of neck pain and able to fully turn her neck this point. She is also complaining of worsening shortness breath COPD exacerbation. Patient does have wheezing bilaterally. Patient's labwork was reviewed and unremarkable. EKG shows no acute changes. Chest x-ray is reviewed and normal. Cervical spine shows evidence. Pulses C5-C6 and discharge in her gestation between C5-C6. She was given IV fluids, Solu-Medrol , and Ativan for muscle relaxer. She does take Fritch already at this time. Patient will be treated as have her COPD exacerbation with steroids, as well as Turk also have her take a couple days of Valium have her discontinue taking the Flexeril that she's been prescribed as well as a temperature medication. I discussed PCP follow-up. Patient agrees to plan will comply. Return parameters were discussed. - Lab Data Result diagrams: 12/30/17 11:20 12/30/17 11:20 Lab Results 12/30/17 12/30/17 12/30/17 Range/Units 11:20 11:20 11:20 WBC 6.7 (3.8-10.6) k/uL RBC 4.59 (3.80-5.40) m/uL Hgb 11.5 (11.4-16.0) gm/dL Hct 36.1 (34.0-46.0) % MCV 78.6 L (80.0-100.0) fL MCH 25.0 (25.0-35.0) pg MCHC 31.8 (31.0-37.0) g/dL RDW 15.9 H (11.5-15.5) % Plt Count 452 H (150-450) k/uL Neutrophils % 56 % Lymphocytes % 29 % Monocytes % 8 % Eosinophils % 4 % Basophils % 0 % Neutrophils # 3.7 (1.3-7.7) k/uL Lymphocytes # 2.0 (1.0-4.8) k/uL Monocytes # 0.6 (0-1.0) k/uL Eosinophils # 0.3 (0-0.7) k/uL Basophils # 0.0 (0-0.2) k/uL Hypochromasia Slight Microcytosis Slight PT 9.5 (9.0-12.0) sec INR 1.0 (<1.2) APTT 22.5 (22.0-30.0) sec Sodium 138 (137-145) mmol/L Potassium 3.9 (3.5-5.1) mmol/L Chloride 105 (98-107) mmol/L Carbon Dioxide 24 (22-30) mmol/L Anion Gap 9 mmol/L BUN 7 (7-17) mg/dL Creatinine 0.59 (0.52-1.04) mg/dL Est GFR (CKD-EPI)AfAm >90 (>60 ml/min/1.73 sqM) Est GFR (CKD-EPI)NonAf >90 (>60 ml/min/1.73 sqM) Glucose 91 (74-99) mg/dL Calcium 8.9 (8.4-10.2) mg/dL Total Bilirubin <0.1 L (0.2-1.3) mg/dL AST 20 (14-36) U/L ALT 22 (9-52) U/L Alkaline Phosphatase 106 (38-126) U/L Troponin I (0.000-0.034) ng/mL Total Protein 7.0 (6.3-8.2) g/dL Albumin 4.0 (3.5-5.0) g/dL 12/30/17 Range/Units 11:20 WBC (3.8-10.6) k/uL RBC (3.80-5.40) m/uL Hgb (11.4-16.0) gm/dL Hct (34.0-46.0) % MCV (80.0-100.0) fL MCH (25.0-35.0) pg MCHC (31.0-37.0) g/dL RDW (11.5-15.5) % Plt Count (150-450) k/uL Neutrophils % % Lymphocytes % % Monocytes % % Eosinophils % % Basophils % % Neutrophils # (1.3-7.7) k/uL Lymphocytes # (1.0-4.8) k/uL Monocytes # (0-1.0) k/uL Eosinophils # (0-0.7) k/uL Basophils # (0-0.2) k/uL Hypochromasia Microcytosis PT (9.0-12.0) sec INR (<1.2) APTT (22.0-30.0) sec Sodium (137-145) mmol/L Potassium (3.5-5.1) mmol/L Chloride (98-107) mmol/L Carbon Dioxide (22-30) mmol/L Anion Gap mmol/L BUN (7-17) mg/dL Creatinine (0.52-1.04) mg/dL Est GFR (CKD-EPI)AfAm (>60 ml/min/1.73 sqM) Est GFR (CKD-EPI)NonAf (>60 ml/min/1.73 sqM) Glucose (74-99) mg/dL Calcium (8.4-10.2) mg/dL Total Bilirubin (0.2-1.3) mg/dL AST (14-36) U/L ALT (9-52) U/L Alkaline Phosphatase (38-126) U/L Troponin I <0.012 (0.000-0.034) ng/mL Total Protein (6.3-8.2) g/dL Albumin (3.5-5.0) g/dL 12/30/17 12:36 EKG shows sinus rhythm and normal EKG. Prolonged QT. The degree of 76 bpm. Intervals 192. QRS duration 86. QT QTc is 404/4 and 95. - Radiology Data Radiology results: report reviewed Kyphosis 100 C5-C6.Narrowing of some endplate spurring C5-C6. No acute pulmonary process on chest x-ray. Disposition Clinical Impression: COPD exacerbation, Torticollis Disposition: HOME SELF-CARE Condition: Good Instructions: Spasmodic Torticollis (ED), COPD (Chronic Obstructive Pulmonary Disease) (ED) Additional Instructions: Patient advised to prompt follow-up with primary care physician. Take the steroids antibiotic as prescribed for the cough. Continue breathing treatments every 4 hours. Patient should use the muscle relaxer prescription as directed. Return to the emergency department if any alarming signs or symptoms occur. Apply heat over the neck. Prescriptions: Diazepam [Valium] 5 mg PO TID PRN 3 Days #9 tab PRN Reason: Pain Levofloxacin [Levaquin] 750 mg PO DAILY 3 Days #5 tab predniSONE 50 mg PO TID #5 tablet Is patient prescribed a controlled substance at d/c from ED?: Yes When asked, does pt state using other controlled substances?: Yes If prescribed controlled substance>3 days was MAPS reviewed?: Prescribed <3 Days If opioid is for acute pain is fill amount 7 days or less?: Yes If Rx opioid, was Start Talking consent form obtained?: Yes Referrals: Saul Muniz MD [Primary Care Provider] - 1-2 days Time of Disposition: 13:03
[2017-12-30 11:50] LABS: Basophils % (A) 0 %; Eosinophils # (A) 0.3 k/uL (0-0.7); Eosinophils % (A) 4 %; HCT 36.1 % (34.0-46.0); HGB 11.5 gm/dL (11.4-16.0); Hypochromasia Slight; Lymphocytes % (A) 29 %; MCHC 31.8 g/dL (31.0-37.0); MCV 78.6 fL (80.0-100.0); Mean Platelet Volume 6.9; Microcytosis Slight; Monocytes # (A) 0.6 k/uL (0-1.0); Monocytes % (A) 8 %; Neutrophils # (A) 3.7 k/uL (1.3-7.7); Neutrophils % (A) 56 %; Platelet Count 452 k/uL (150-450); RBC 4.59 m/uL (3.80-5.40); RDW 15.9 % (11.5-15.5); WBC 6.7 k/uL (3.8-10.6)
[2017-12-30 12:00] LABS: ALT 22 U/L (9-52); AST 20 U/L (14-36); Alkaline Phosphatase 106 U/L (38-126); Anion Gap 9 mmol/L; Blood Urea Nitrogen 7 mg/dL (7-17); Calcium 8.9 mg/dL (8.4-10.2); Carbon Dioxide 24 mmol/L (22-30); Chloride 105 mmol/L (98-107); Glucose 91 mg/dL (74-99); Potassium 3.9 mmol/L (3.5-5.1); Sodium 138 mmol/L (137-145); Total Bilirubin <0.1 mg/dL (0.2-1.3)
[2017-12-30 12:14] LABS: Partial Thromboplastin Time 22.5 sec (22.0-30.0); Prothrombin Time 9.5 sec (9.0-12.0)
--- NOTE | 2017-12-30 12:57 | XR ---
EXAMINATION TYPE: XR chest 2V DATE OF EXAM: 12/30/2017 COMPARISON: 05/11/2017 INDICATION: Difficulty breathing TECHNIQUE: Frontal and lateral views of the chest are obtained. FINDINGS: The heart size is normal. The pulmonary vasculature is normal. The lungs are clear. IMPRESSION: 1. No acute pulmonary process.
--- NOTE | 2017-12-30 12:58 | XR ---
EXAMINATION TYPE: XR cervical spine limited DATE OF EXAM: 12/30/2017 COMPARISON: 03/22/2015 HISTORY: Pain unable to move head TECHNIQUE: Three-view cervical spine supplemented with a transthoracic swimmer's view FINDINGS: Some disc space narrowing is present C5-C6. Some minimal posterior spurring from the superi or endplate of C6 is present. There is a kyphosis centered at C5-6. The prevertebral space is normal. Remaining disc heights appear preserved. Vertebral body heights are preserved. Posterior spinal lame llar line is intact. The odontoid is limited with overlying incisors. Exam is supplemented with a tra nsthoracic swimmer's view. IMPRESSION: 1. Kyphosis centered at C5-6. There is disc space narrowing and some endplate spurring at C5-6.
[2017-12-30 13:00] VITALS: BP 143/71; PULSE 85; RESP 18
[2017-12-30 13:29] VITALS: TEMP 98.6
== END 2017-12-30 13:30 | disposition home or self-care (01) ==
LOC: EC 09:55
DX: M43.6 Torticollis (principal); J44.1 Chronic obstructive pulmonary disease with (acute) exacerbation; M79.7 Fibromyalgia; G40.909 Epilepsy, unspecified, not intractable, without status epilepticus; K58.9 Irritable bowel syndrome, unspecified; H54.8 Legal blindness, as defined in USA; F31.9 Bipolar disorder, unspecified; Z87.891 Personal history of nicotine dependence; Z98.51 Tubal ligation status; Z98.890 Other specified postprocedural states; Z79.899 Other long term (current) drug therapy; Z88.8 Allergy status to other drugs, medicaments and biological substances; Z91.018 Allergy to other foods; Z91.030 Bee allergy status; Z91.048 Other nonmedicinal substance allergy status
CPT/HCPCS: 36415; 94640; 93005; 80053; 84484; 85025; 85610; 85730; 72040; 71046; 99284; 96374; 96375; J2930; J1885

== ENCOUNTER → 2018-10-16 | Outpatient (CLI) | payer OTHER ==
[2018-10-16 10:08] LABS: Basophils # (A) 0.1 k/uL (0-0.2); Basophils % (A) 1 %; Eosinophils # (A) 0.1 k/uL (0-0.7); Eosinophils % (A) 2 %; HCT 40.7 % (34.0-46.0); HGB 12.6 gm/dL (11.4-16.0); Hypochromasia Slight; Lymphocytes # (A) 1.7 k/uL (1.0-4.8); Lymphocytes % (A) 29 %; MCH 26.4 pg (25.0-35.0); MCV 85.1 fL (80.0-100.0); Mean Platelet Volume 6.5; Monocytes # (A) 0.3 k/uL (0-1.0); Monocytes % (A) 5 %; Neutrophils # (A) 3.7 k/uL (1.3-7.7); Neutrophils % (A) 61 %; Platelet Count 371 k/uL (150-450); RBC 4.79 m/uL (3.80-5.40); RDW 14.6 % (11.5-15.5)
[2018-10-16 18:11] LABS: Albumin 4.2 g/dL (3.80-4.90); Albumin/Globulin Ratio 1.83 (1.60-3.17); Anion Gap 4.4 mmol/L (4.00-12.00); Calcium 9.2 mg/dL (8.7-10.3); Carbon Dioxide 27.6 mmol/L (21.6-31.8); Globulin 2.3 g/dL (1.6-3.3); Potassium 4.5 mmol/L (3.5-5.5); Total Bilirubin 0.3 mg/dL (0.3-1.2); Total Protein 6.5 g/dL (6.2-8.2)
[2018-10-16 18:38] LABS: T4, Free (Free Thyroxine) 0.9 ng/dL (0.80-1.80)
== END | disposition home or self-care (01) ==
LOC: LABWHC1 09:24
PROVIDERS: ATTEND Family Medicine
DX: Z00.00 Encounter for general adult medical examination without abnormal findings (principal); F31.9 Bipolar disorder, unspecified; M79.7 Fibromyalgia; K21.9 Gastro-esophageal reflux disease without esophagitis; K58.0 Irritable bowel syndrome with diarrhea; R51 Headache
CPT/HCPCS: 36415; 80053; 80061; 84439; 84443; 85025

== ENCOUNTER 2019-07-13 15:15 | Emergency (ER) | payer OTHER ==
[2019-07-13 15:37] VITALS: BP 119/80; PULSE 66; RESP 18; TEMP 97.8
--- NOTE | 2019-07-13 16:37 | XR ---
EXAMINATION TYPE: XR ankle complete RT DATE OF EXAM: 07/13/2019 COMPARISON: 07/24/2015 HISTORY: Pain TECHNIQUE: 3 views FINDINGS: Ankle mortise is anatomic. I see no fracture nor dislocation. There are plantar and Matthews s calcaneal spurs. There is mild spurring of the anterior and posterior malleolus. IMPRESSION: Mild degenerative spurring. No fracture seen.
--- NOTE | 2019-07-13 16:39 | XR ---
EXAMINATION TYPE: XR foot complete RT DATE OF EXAM: 07/13/2019 COMPARISON: NONE HISTORY: Pain TECHNIQUE: 3 views FINDINGS: There is plantar and Achilles calcaneal spurring. I see no fracture nor dislocation. Metata rsals appear intact. IMPRESSION: Calcaneal spurring. No fracture seen. Joint spaces are fairly normal.
--- NOTE | 2019-07-13 17:12 | ED ---
Lower Extremity Injury HPI - General Chief Complaint: Extremity Injury, Lower Stated Complaint: twisted right ankle Time Seen by Provider: 07/13/19 15:45 Source: patient Mode of arrival: wheelchair Limitations: no limitations - History of Present Illness Initial Comments: Patient is a 49-year-old female presenting to emergency Department with chief complaint of an ankle sprain. Patient states she was walking when she twisted her right ankle yesterday. Patient reports immediate onset of pain along the lateral malleoli and the midfoot. Does report some mild swelling but no skin ecchymosis. States the pain does not radiate anywhere. Does report taking [id number] analgesia with minimal improvement. States that she currently wears a brace on the right leg for a previous injury. Denies any numbness or tingling. She already sees an fire support specialist for other joint problems. - Related Data Home Medications Medication Instructions Recorded Confirmed Albuterol Sulfate [Proair Hfa] 2 puff INHALATION RT-Q6H PRN 03/28/15 12/30/17 Loperamide [Imodium] 2 mg PO BID PRN 03/28/15 12/30/17 Primidone [Mysoline] 100 mg PO BID 03/28/15 12/30/17 SUMAtriptan SUCCINATE [Imitrex] 100 mg PO BID PRN 03/28/15 12/30/17 rOPINIRole HCL [Requip] 0.5 mg PO HS 03/28/15 12/30/17 Cyclobenzaprine [Flexeril] 10 mg PO TID 11/11/16 12/30/17 Desvenlafaxine Succinate [Pristiq] 100 mg PO DAILY 11/11/16 12/30/17 Esomeprazole Magnesium [NexIUM] 40 mg PO DAILY 11/11/16 12/30/17 Azelastine HCl [Optivar 0.05% 1 drop RIGHT EYE BID 05/10/17 12/30/17 Ophth Soln] Dicyclomine HCl 20 mg PO QID 05/10/17 12/30/17 Hydrocodone/Acetaminophen [Cougar 1 tab PO Q8H PRN 05/10/17 12/30/17 7.5-325] Montelukast [Singulair] 10 mg PO HS 05/10/17 12/30/17 Propranolol HCl [Inderal Xl] 80 mg PO DAILY 05/10/17 12/30/17 Benzocaine/Menthol Lozeng [Cepacol 1 each MUCOUS MEM Q4HR PRN 12/30/17 12/30/17 lozenge] Loratadine Oral Soln [Claritin 10 mg PO DAILY PRN 12/30/17 12/30/17 Oral Soln] Previous Rx's Medication Instructions Recorded guaiFENesin [Mucinex] 1,200 mg PO Q12HR PRN #20 tab 05/14/17 Diazepam [Valium] 5 mg PO TID PRN 3 Days #9 tab 12/30/17 Levofloxacin [Levaquin] 750 mg PO DAILY 3 Days #5 tab 12/30/17 predniSONE 50 mg PO TID #5 tablet 12/30/17 Allergies Allergy/AdvReac Type Severity Reaction Status Date / Time bee pollen Allergy Severe Unknown Verified 12/30/17 10:23 tomato AdvReac Severe Chest Pain Verified 12/30/17 10:23 varenicline tartrate AdvReac Severe Hallucinati Verified 12/30/17 10:23 [From Chantix] ons aspirin AdvReac Nausea & Verified 07/13/19 15:38 Vomiting JACINTO AdvReac Severe Chest Pain Uncoded 12/30/17 10:03 MIRACLE WHIP AdvReac Severe Chest Pain Uncoded 12/30/17 10:03 AEROSOL AdvReac Unknown Uncoded 12/30/17 10:23 Review of Systems ROS Statement: Those systems with pertinent positive or pertinent negative responses have been documented in the HPI. ROS Other: All systems not noted in ROS Statement are negative. 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 History of Any Multi-Drug Resistant Organisms: None Reported Past Surgical History: Orthopedic Surgery, Tubal Ligation Additional Past Surgical History / Comment(s): right ankle Past Psychological History: Bipolar, Depression Smoking Status: Former smoker Past Alcohol Use History: None Reported Past Drug Use History: Marijuana - Past Family History Father Family Medical History: COPD, Coronary Artery Disease (CAD), Hearing Disorder / Deafness Mother Additional Family Medical History / Comment(s): osteoporosis, narrowing of spine, uterine proplapse, rods and screws in back General Exam Limitations: no limitations General appearance: alert, in no apparent distress Head exam: Present: atraumatic, normocephalic, normal inspection Eye exam: Present: normal appearance Pupils: Present: normal accommodation ENT exam: Present: normal exam, normal oropharynx, mucous membranes moist Neck exam: Present: normal inspection, full ROM Respiratory exam: Present: normal lung sounds bilaterally Cardiovascular Exam: Present: regular rate, normal rhythm, normal heart sounds Extremities exam: Present: tenderness (Midfoot tenderness and tenderness along the lateral malleolus.), normal capillary refill, joint swelling, other (+2 ulnar and radial pulses bilaterally. +2 dorsalis pedis and posterior tibialis bilaterally.). Absent: normal inspection (Mild swelling along the lateral malleolus. No foot swelling.), full ROM (Limited range of motion with inversion and dorsiflexion.), calf tenderness (Negative Homans bilaterally.) Back exam: Present: normal inspection, full ROM Neurological exam: Present: alert, oriented X3 Psychiatric exam: Present: normal affect, normal mood Skin exam: Present: warm, dry, intact, normal color Course Vital Signs 07/13/19 15:34 Temperature 97.8 F Pulse Rate 66 Respiratory 18 Rate Blood Pressure 119/80 O2 Sat by Pulse 100 Oximetry Medical Decision Making - Medical Decision Making Patient is a 49-year-old female presenting to emergency Department with a chief complaint of knee sprain. States that she was walking and sprained her right ankle. Examination patient does have mild swelling along the lateral malleolus and midfoot. Tenderness in those regions as well. Limited range of motion with inversion and dorsiflexion. Patient is neurovascularly intact in the right lower extremity. Patient was offered analgesia but she declined. X-ray shows no signs of acute fracture or dislocations. Patient rated wears a brace on the right lower extremity. Patient advised to continue wearing the brace and follow-up with her established fire support specialist. She was advised to apply ice compress, rest, elevate and and alternate between Tylenol and Motrin for pain control. She is going to follow-up with her fire support specialist next few days. Return parameters thoroughly discussed with patient was understanding and agreeable. Case discussed with physician. Disposition Clinical Impression: Right foot injury, Right ankle sprain Disposition: HOME SELF-CARE Condition: Stable Instructions (If sedation given, give patient instructions): Ankle Sprain (ED) Additional Instructions: Follow-up with your fire support specialist. Return to emergency department if symptoms worsen. Is patient prescribed a controlled substance at d/c from ED?: No Referrals: Saul Muniz MD [Primary Care Provider] - 1-2 days Time of Disposition: 17:11
== END 2019-07-13 17:13 | disposition home or self-care (01) ==
LOC: EC 15:15
DX: S93.401A Sprain of unspecified ligament of right ankle, initial encounter (principal); J44.9 Chronic obstructive pulmonary disease, unspecified; F31.9 Bipolar disorder, unspecified; G40.909 Epilepsy, unspecified, not intractable, without status epilepticus; G89.29 Other chronic pain; K58.9 Irritable bowel syndrome, unspecified; M77.31 Calcaneal spur, right foot; M79.7 Fibromyalgia; H54.8 Legal blindness, as defined in USA; Z91.030 Bee allergy status; Z91.018 Allergy to other foods; Z79.899 Other long term (current) drug therapy; Z79.51 Long term (current) use of inhaled steroids; Z88.6 Allergy status to analgesic agent; Z88.8 Allergy status to other drugs, medicaments and biological substances; Z98.890 Other specified postprocedural states; Z53.20 Procedure and treatment not carried out because of patient's decision for unspecified reasons; Z87.891 Personal history of nicotine dependence; X50.1XXA Overexertion from prolonged static or awkward postures, initial encounter; Y93.01 Activity, walking, marching and hiking; Y92.009 Unspecified place in unspecified non-institutional (private) residence as the place of occurrence of the external cause
CPT/HCPCS: 99283

== ENCOUNTER 2020-12-04 19:22 | Emergency (ER) | payer OTHER ==
[2020-12-04] MEDS ORDERED: ACETAMINOPHEN TAB 500 MG TAB PO STA (19:44)
--- NOTE | 2020-12-04 20:03 | ED ---
General Adult HPI - General Chief complaint: Head Injury Stated complaint: Head injury [facility] Time Seen by Provider: 12/04/20 19:30 Source: patient, RN notes reviewed, old records reviewed Mode of arrival: ambulatory Limitations: no limitations - History of Present Illness Initial comments: This is a 50-year-old female presents to the emergency department complaining of being hit in the head with a sliding metal door at work. Patient states she was not dazed or loss of consciousness. Patient states she does have a headache and it seems to be getting worse. Patient states she didn't take anything prior to getting here. Patient denies any neck pain. Patient denies any numbness weakness. Patient denies any other injury at this time. Patient denies any bleeding. - Related Data Home Medications Medication Instructions Recorded Confirmed Albuterol Sulfate [Proair Hfa] 2 puff INHALATION RT-Q6H PRN 03/28/15 12/30/17 Loperamide [Imodium] 2 mg PO BID PRN 03/28/15 12/30/17 Primidone [Mysoline] 100 mg PO BID 03/28/15 12/30/17 SUMAtriptan SUCCINATE [Imitrex] 100 mg PO BID PRN 03/28/15 12/30/17 rOPINIRole HCL [Requip] 0.5 mg PO HS 03/28/15 12/30/17 Cyclobenzaprine [Flexeril] 10 mg PO TID 11/11/16 12/30/17 Desvenlafaxine Succinate [Pristiq] 100 mg PO DAILY 11/11/16 12/30/17 Esomeprazole Magnesium [NexIUM] 40 mg PO DAILY 11/11/16 12/30/17 Azelastine HCl [Optivar 0.05% 1 drop RIGHT EYE BID 05/10/17 12/30/17 Ophth Soln] Dicyclomine HCl 20 mg PO QID 05/10/17 12/30/17 Hydrocodone/Acetaminophen [[place] 1 tab PO Q8H PRN 05/10/17 12/30/17 7.5-325] Montelukast [Singulair] 10 mg PO HS 05/10/17 12/30/17 Propranolol HCl [Inderal Xl] 80 mg PO DAILY 05/10/17 12/30/17 Benzocaine/Menthol Lozeng [Cepacol 1 each MUCOUS MEM Q4HR PRN 12/30/17 12/30/17 lozenge] Loratadine Oral Soln [Claritin 10 mg PO DAILY PRN 12/30/17 12/30/17 Oral Soln] Previous Rx's Medication Instructions Recorded guaiFENesin [Mucinex] 1,200 mg PO Q12HR PRN #20 tab 05/14/17 Levofloxacin [Levaquin] 750 mg PO DAILY 3 Days #5 tab 12/30/17 diazePAM [Valium] 5 mg PO TID PRN 3 Days #9 tab 12/30/17 predniSONE 50 mg PO TID #5 tablet 12/30/17 Allergies Allergy/AdvReac Type Severity Reaction Status Date / Time bee pollen Allergy Severe Unknown Verified 12/04/20 19:29 tomato AdvReac Severe Chest Pain Verified 12/04/20 19:29 varenicline tartrate AdvReac Severe Hallucinati Verified 12/04/20 19:29 [From Chantix] ons aspirin AdvReac Nausea & Verified 12/04/20 19:29 Vomiting JACINTO AdvReac Severe Chest Pain Uncoded 12/04/20 19:29 MIRACLE WHIP AdvReac Severe Chest Pain Uncoded 12/04/20 19:29 AEROSOL AdvReac Unknown Uncoded 12/04/20 19:29 Review of Systems ROS Statement: Those systems with pertinent positive or pertinent negative responses have been documented in the HPI. ROS Other: All systems not noted in ROS Statement are negative. 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 History of Any Multi-Drug Resistant Organisms: None Reported Past Surgical History: Orthopedic Surgery, Tubal Ligation Additional Past Surgical History / Comment(s): right ankle Past Psychological History: Bipolar, Depression Smoking Status: Never smoker Past Alcohol Use History: None Reported Past Drug Use History: Marijuana - Past Family History Father Family Medical History: COPD, Coronary Artery Disease (CAD), Hearing Disorder / Deafness Mother Additional Family Medical History / Comment(s): osteoporosis, narrowing of spine, uterine proplapse, rods and screws in back General Exam - General Exam Comments Initial Comments: GENERAL: Patient is well-developed and well-nourished. Patient is nontoxic and well- hydrated and is in mild distress. Patient's scalp is tender on top of the scalp there is no abrasion and no sites of bleeding. ENT: Neck is soft and supple. No significant lymphadenopathy is noted. Oropharynx is clear. Moist mucous membranes. Neck has full range of motion without eliciting any pain. EYES: The sclera were anicteric and conjunctiva were pink and moist. Extraocular movements were intact and pupils were equal round and reactive to light. Eyelids were unremarkable. PULMONARY: Unlabored respirations. Good breath sounds bilaterally. No audible rales rhonchi or wheezing was noted. CARDIOVASCULAR: There is a regular rate and rhythm without any murmurs gallops or rubs. ABDOMEN: Soft and nontender with normal bowel sounds. SKIN: Skin is clear with no lesions or rashes and otherwise unremarkable. NEUROLOGIC: Patient is alert and oriented x3. Cranial nerves II through XII are grossly intact. Motor and sensory are also intact. Normal speech, volume and content. Symmetrical smile. MUSCULOSKELETAL: Normal extremities with adequate strength and full range of motion. LYMPHATICS: No significant lymphadenopathy is noted PSYCHIATRIC: Normal psychiatric evaluation. Limitations: no limitations Course Vital Signs 12/04/20 19:27 Temperature 97.8 F Pulse Rate 72 Respiratory 16 Rate Blood Pressure 156/82 O2 Sat by Pulse 99 Oximetry Medical Decision Making - Medical Decision Making CT of the brain and C-spine were negative. Disposition Clinical Impression: Closed head injury, Contusion of scalp Disposition: HOME SELF-CARE Instructions (If sedation given, give patient instructions): Concussion (ED) Is patient prescribed a controlled substance at d/c from ED?: No Referrals: Saul Muniz MD [Primary Care Provider] - 1-2 days Time of Disposition: 20:22
--- NOTE | 2020-12-04 20:21 | CT ---
EXAMINATION TYPE: CT brain margaine wo con DATE OF EXAM: 12/04/2020 COMPARISON: None available. HISTORY: headache and nausea post head injury CT DLP: 1185.6 mGycm Automated exposure control for dose reduction was used. TECHNIQUE: CT scan of the head and cervical spine are performed without contrast. FINDINGS: There is no acute intracranial hemorrhage, mass effect, or midline shift identified. The ventricles and sulci are within normal limits in size. The globes are intact and the visualized sin uses are clear. Cervical spine is visualized in its entirety from C1 through upper thoracic levels and demonstrates s atisfactory alignment without evidence of acute fracture or dislocation. Prevertebral soft tissue ap pears within normal limits. The C1-C2 articulation is unremarkable. IMPRESSION: 1. There is no acute fracture or dislocation evident in the cervical spine. 2. No acute intracranial hemorrhage, mass effect, or midline shift is seen.
[2020-12-04 20:45] VITALS: BP 135/83; PULSE 59; RESP 18; TEMP 98
== END 2020-12-04 20:40 | disposition home or self-care (01) ==
LOC: EC 19:22
DX: S00.03XA Contusion of scalp, initial encounter (principal); J44.9 Chronic obstructive pulmonary disease, unspecified; G40.909 Epilepsy, unspecified, not intractable, without status epilepticus; F31.9 Bipolar disorder, unspecified; M79.7 Fibromyalgia; F12.90 Cannabis use, unspecified, uncomplicated; Z82.49 Family history of ischemic heart disease and other diseases of the circulatory system; Z79.52 Long term (current) use of systemic steroids; Z79.891 Long term (current) use of opiate analgesic; Z79.51 Long term (current) use of inhaled steroids; Z79.899 Other long term (current) drug therapy
CPT/HCPCS: 70450; 72125; 99284

== ENCOUNTER → 2021-10-04 | Outpatient (CLI) | payer BC ==
[2021-10-04 23:09] LABS: Basophils # (A) 0.07 X 10*3/uL (0.00-0.10); Eosinophils # (A) 0.11 X 10*3/uL (0.04-0.35); Eosinophils % (A) 1.6 %; HCT 39.3 % (37.2-46.3); HGB 11.9 g/dL (12.0-15.0); Immature Grans, Automated 0.3 %; Lymphocytes # (A) 3.08 X 10*3/uL (0.90-5.00); Lymphocytes % (A) 43.5 %; MCH 26.5 pg (27.0-32.0); MCHC 30.3 g/dL (32.0-37.0); MCV 87.5 fL (80.0-97.0); Mean Platelet Volume 9.7 fL (9.5-12.2); Monocytes # (A) 0.42 X 10*3/uL (0.20-1.00); Monocytes % (A) 5.9 %; NRBC Per 100 WBC 0 /100 WBCS (0.0-0.0); Neutrophils # (A) 3.38 X 10*3/uL (1.80-7.70); Neutrophils % (A) 47.7 %; Platelet Count 465 X 10*3/uL (140-440); RBC 4.49 X 10*6/uL (4.10-5.20); RDW 12.7 % (11.5-14.5); WBC 7.08 X 10*3/uL (4.50-10.00)
[2021-10-04 23:42] LABS: ALT 20 U/L (8-44); AST 21 U/L (13-35); African American GFR (CKD) 115.3 (60.0-200.0); Albumin 4.2 g/dL (3.8-4.9); Albumin/Globulin Ratio 1.52 (1.60-3.17); Alkaline Phosphatase 94 U/L (41-126); BUN/Creat Ratio 7.04 Ratio (12.00-20.00); Bilirubin, Conjugated <0.20 mg/dL (0.20-0.40); Calcium 9.4 mg/dL (8.7-10.3); Carbon Dioxide 26.3 mmol/L (20.0-27.5); Chloride 102 mmol/L (96-109); Globulin 2.7 g/dL (1.6-3.3); Glucose 107 mg/dL (70-110); Magnesium 2.2 mg/dL (1.5-2.4); Non-African American GFR(CKD) 99.5 (60.0-200.0); Potassium 3.6 mmol/L (3.5-5.5); Sodium 139 mmol/L (135-145); Total Bilirubin <0.15 mg/dL (0.30-1.20); Total Protein 6.9 g/dL (6.2-8.2)
[2021-10-05 13:18] LABS: Cryptosporidium Antigen Negative (Negative)
== END | disposition home or self-care (01) ==
LOC: LABWHC1 15:38
PROVIDERS: ATTEND Family Medicine
DX: M79.7 Fibromyalgia (principal); G90.521 Complex regional pain syndrome I of right lower limb; M21.371 Foot drop, right foot; J45.909 Unspecified asthma, uncomplicated; G25.81 Restless legs syndrome; G43.909 Migraine, unspecified, not intractable, without status migrainosus; L65.9 Nonscarring hair loss, unspecified; R53.83 Other fatigue
CPT/HCPCS: 36415; 80048; 80076; 83735; 84443; 85025; 87045; 87046; 87328; 87329

== ENCOUNTER 2022-06-09 14:44 | Emergency (ER) | payer BC ==
--- NOTE | 2022-06-09 15:11 | ED ---
General Adult HPI - General Source: patient, EMS, RN notes reviewed Mode of arrival: EMS Limitations: no limitations <Marky Kirby - Last Filed: 06/09/22 15:11> - General Source: patient, RN notes reviewed Mode of arrival: EMS Limitations: no limitations <Rosalia Wheatley - Last Filed: 06/13/22 18:18> - General Stated complaint: Flu Symptoms Time Seen by Provider: 06/09/22 15:10 - History of Present Illness Initial comments: This is a 51-year-old female presents emergency Department chief complaint of cough congestion nausea vomiting. Patient states symptoms started last 24 hours. Patient's had fevers chills body aches. Patient states she hurts to. Patient does have underlying chronic pain syndrome. Patient states that she did take some Tylenol. Patient states that she's had several episodes of emesis. She continues to have ongoing nausea, body aches. Patient does admit that she has asthma, COPD. (Marky Kirby) 51-year-old female presents to the emergency Department with complaints of chills, sore throat, body aches, cough, congestion, and poor appetite. States several family members have had similar symptoms. Reports discomfort began last night and persisted throughout the day today. States she called EMS because she was feeling so poorly. Reports history of fibromyalgia, asthma, and COPD. Did not take anything to treat her symptoms prior to arrival. Denies chest pain, palpitations, difficulty breathing, and abdominal pain. (Rosalia Wheatley) - Related Data Home Medications Medication Instructions Recorded Confirmed Albuterol Sulfate [Proair Hfa] 2 puff INHALATION RT-Q6H PRN 03/28/15 12/30/17 Loperamide [Imodium] 2 mg PO BID PRN 03/28/15 12/30/17 Primidone [Mysoline] 100 mg PO BID 03/28/15 12/30/17 SUMAtriptan succinate [Imitrex] 100 mg PO BID PRN 03/28/15 12/30/17 rOPINIRole HCL [Requip] 0.5 mg PO HS 03/28/15 12/30/17 Cyclobenzaprine [Flexeril] 10 mg PO TID 11/11/16 12/30/17 Desvenlafaxine Succinate [Pristiq] 100 mg PO DAILY 11/11/16 12/30/17 Esomeprazole Magnesium [NexIUM] 40 mg PO DAILY 11/11/16 12/30/17 Azelastine HCl [Optivar 0.05% 1 drop RIGHT EYE BID 05/10/17 12/30/17 Ophth Soln] Dicyclomine HCl 20 mg PO QID 05/10/17 12/30/17 Hydrocodone/Acetaminophen [[place] 1 tab PO Q8H PRN 05/10/17 12/30/17 7.5-325] Montelukast [Singulair] 10 mg PO HS 05/10/17 12/30/17 Propranolol HCl [Inderal Xl] 80 mg PO DAILY 05/10/17 12/30/17 Benzocaine/Menthol Lozeng [Cepacol 1 each MUCOUS MEM Q4HR PRN 12/30/17 12/30/17 lozenge] Loratadine Oral Soln [Claritin 10 mg PO DAILY PRN 12/30/17 12/30/17 Oral Soln] Previous Rx's Medication Instructions Recorded guaiFENesin [Mucinex] 1,200 mg PO Q12HR PRN #20 tab 05/14/17 Levofloxacin [Levaquin] 750 mg PO DAILY 3 Days #5 tab 12/30/17 diazePAM [Valium] 5 mg PO TID PRN 3 Days #9 tab 12/30/17 predniSONE 50 mg PO TID #5 tablet 12/30/17 Ondansetron Odt [Zofran Odt] 4 mg PO Q8HR PRN #10 tab 06/09/22 Oseltamivir [Tamiflu] 75 mg PO Q12HR #10 cap 06/09/22 Allergies Allergy/AdvReac Type Severity Reaction Status Date / Time bee pollen Allergy Severe Unknown Verified 06/09/22 15:28 tomato AdvReac Severe Chest Pain Verified 06/09/22 15:28 varenicline tartrate AdvReac Severe Hallucinati Verified 06/09/22 15:28 [From Helenex] ons aspirin AdvReac Nausea & Verified 06/09/22 15:28 Vomiting JACINTO AdvReac Severe Chest Pain Uncoded 06/09/22 15:28 MIRACLE WHIP AdvReac Severe Chest Pain Uncoded 06/09/22 15:28 AEROSOL AdvReac Unknown Uncoded 01/02/23 15:28 Review of Systems ROS Other: All systems not noted in ROS Statement are negative. <Marky Kirby - Last Filed: 06/09/22 15:11> ROS Other: All systems not noted in ROS Statement are negative. <Rosalia Wheatley - Last Filed: 06/13/22 18:18> ROS Statement: Those systems with pertinent positive or pertinent negative responses have been documented in the HPI. 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 History of Any Multi-Drug Resistant Organisms: None Reported Past Surgical History: Orthopedic Surgery, Tubal Ligation Additional Past Surgical History / Comment(s): right ankle Past Psychological History: Bipolar, Depression Smoking Status: Never smoker Past Alcohol Use History: None Reported Past Drug Use History: Marijuana - Past Family History Father Family Medical History: COPD, Coronary Artery Disease (CAD), Hearing Disorder / Deafness Mother Additional Family Medical History / Comment(s): osteoporosis, narrowing of spine, uterine proplapse, rods and screws in back <Marky Kirby - Last Filed: 06/09/22 15:11> General Exam Limitations: no limitations General appearance: alert, in no apparent distress (Patient appears to be feeling poorly but is in no acute distress) Eye exam: Present: normal appearance. Absent: scleral icterus, conjunctival injection ENT exam: Present: normal exam, normal oropharynx, mucous membranes moist Respiratory exam: Present: normal lung sounds bilaterally, other (Strong, conges anh, nonproductive cough.). Absent: respiratory distress, wheezes, rales, rhonchi, stridor, chest wall tenderness Cardiovascular Exam: Present: regular rate, normal rhythm, normal heart sounds. Absent: systolic murmur, diastolic murmur, rubs, gallop, clicks GI/Abdominal exam: Present: soft, normal bowel sounds. Absent: distended, tenderness, guarding, rebound, rigid Neurological exam: Present: alert, oriented X3 Psychiatric exam: Present: normal affect, normal mood Skin exam: Present: warm, dry, intact, normal color. Absent: rash <Rosalia Wheatley - Last Filed: 06/13/22 18:18> Course <Rosalia Wheatley - Last Filed: 06/13/22 18:18> Vital Signs 06/09/22 06/09/22 15:26 20:38 Temperature 98.9 F Pulse Rate 86 78 Respiratory 22 15 Rate Blood Pressure 136/84 129/88 O2 Sat by Pulse 98 99 Oximetry - Reevaluation(s) Reevaluation #1: 06/09/22 20:03 Patient updated on findings. Discussed plan of care to discharge home after IV fluids, Zofran, and initiation of Tamiflu. Patient is agreeable and is making arrangements for ride home. (Rosalia Wheatley) Medical Decision Making - Lab Data Result diagrams: 06/09/22 15:29 06/09/22 15:29 - Radiology Data Radiology results: report reviewed, image reviewed <Rosalia Wheatley - Last Filed: 06/13/22 18:18> - Medical Decision Making This is a 51-year-old female with past medical history of fibromyalgia, COPD, and asthma who presents to the emergency Department with complaints of body aches, fever, congestion, and poor appetite. Upon exam, patient appears to be feeling poorly but is in no acute distress. Physical exam findings are overall unremarkable. Laboratory studies were obtained. Serology positive for influenza a. Given patient's comorbidities and timeframe of symptom onset, patient was started on Tamiflu and advised of GI side effects. Discussed chest x-ray findings of medial right upper lobe density and encouraged her to follow up with her PCP to discuss this further. She will be discharged home to follow up with her PCP as needed. Encouraged to drink fluids and rest. Suggested Tylenol or Motrin as needed for fever and bodyaches. Return parameters were discussed in detail. Patient verbalizes understanding and agrees with this plan. Attending: Garrick. Was pt. sent in by a medical professional or institution? @ -No Did you speak to anyone other than the patient for history? @ -No Did you review nursing and triage notes? @ -Yes, agree Were old charts reviewed? @ -No Differential Diagnosis? @ -URI, influenza, exacerbation of fibromyalgia, exacerbation of asthma, pneumonia, this is not meant to be an exhaustive list EKG interpreted by me (3pts min.)? @ -Not applicable X-rays interpreted by me (1pt min.)? @ -X-ray as interpreted by me shows minimal amount of lower lobe atelectasis. CT interpreted by me (1pt min.)? @ -Not applicable U/S interpreted by me (1pt. min.)? @ -Not applicable What testing was considered but not performed? (CT, X-rays, U/S, labs)? Why? @ -None What meds were considered but not given? Why? @ -None Did you discuss the management of the patient with other professionals? @ -None Did you reconcile home meds? @ -No Was smoking cessation discussed for >3mins.? @ -No Was critical care preformed (if so, how long)? @ -No Were there social determinants of health that impacted care today? How? (Homelessness, low income, unemployed, alcoholism, drug addiction, transportation, low edu. Level, literacy, decrease access to med. care, alf, rehab)? @ -No Was there de-escalation of care discussed even if they declined? (Discuss DNR or withdrawal of care, Hospice)? @ -No What co-morbidities impacted this encounter? (DM, HTN, Smoking, COPD, CAD, Cancer, CVA, Hep., AIDS, mental health diagnosis, sleep apnea, morbid obesity)? @ -Asthma, COPD, fibromyalgia Was patient admitted / discharged? @ -Discharged Undiagnosed new problem with uncertain prognosis? @ -None Drug Therapy requiring intensive monitoring for toxicity (Heparin, Nitro, Insul in, Cardizem)? @ -None Were any procedures done? @ -None Diagnosis/symptom? @ -Influenza A Acute, or Chronic, or Acute on Chronic? @ -Acute Uncomplicated (without systemic symptoms) or Complicated (systemic symptoms)? @ -Uncomplicated Side effects of treatment? @ -None Exacerbation, Progression, or Severe Exacerbation] @ -No Poses a threat to life or bodily function? @ -No (Rosalia Wheatley) - Lab Data Lab Results 06/09/22 06/09/22 06/09/22 Range/Units 15:29 15:29 15:29 WBC 4.2 (3.8-10.6) k/uL RBC 4.73 (3.80-5.40) m/uL Hgb 13.4 (11.4-16.0) gm/dL Hct 39.4 (34.0-46.0) % MCV 83.4 (80.0-100.0) fL MCH 28.3 (25.0-35.0) pg MCHC 33.9 (31.0-37.0) g/dL RDW 12.8 (11.5-15.5) % Plt Count 206 (150-450) k/uL MPV 8.0 Neutrophils % 84 % Lymphocytes % 9 % Monocytes % 5 % Eosinophils % 1 % Basophils % 0 % Neutrophils # 3.5 (1.3-7.7) k/uL Lymphocytes # 0.4 L (1.0-4.8) k/uL Monocytes # 0.2 (0-1.0) k/uL Eosinophils # 0.0 (0-0.7) k/uL Basophils # 0.0 (0-0.2) k/uL Sodium 135 L (137-145) mmol/L Potassium 4.1 (3.5-5.1) mmol/L Chloride 101 (98-107) mmol/L Carbon Dioxide 23 (22-30) mmol/L Anion Gap 11 mmol/L BUN 8 (7-17) mg/dL Creatinine 0.57 (0.52-1.04) mg/dL Est GFR (CKD-EPI)AfAm >90 (>60 ml/min/1.73 sqM) Est GFR (CKD-EPI)NonAf >90 (>60 ml/min/1.73 sqM) Glucose 123 H (74-99) mg/dL Calcium 9.3 (8.4-10.2) mg/dL Total Bilirubin 0.2 (0.2-1.3) mg/dL AST 36 (14-36) U/L ALT 27 (4-34) U/L Alkaline Phosphatase 99 (38-126) U/L Total Protein 7.8 (6.3-8.2) g/dL Albumin 4.6 (3.5-5.0) g/dL Influenza Type A (PCR) Detected A (Not Detectd) Influenza Type B (PCR) Not Detected (Not Detectd) RSV (PCR) Not Detected (Not Detectd) SARS-CoV-2 (PCR) Not Detected (Not Detectd) - Radiology Data Interpreted by me: Chest x-ray as interpreted by me shows lower lobe atelectasis. (Rosalia Wheatley) Two-view chest x-ray was obtained. Report was reviewed in its entirety. Impression per Dr. Thorne for some density in the lower lungs favored to represent strandy atelectasis. There is a focal density medial right upper lobe that probably corresponds to a prominent right anterior first rib and rather than underlying pulmonary nodule. Short interval follow-up in 6-8 weeks to reassess recommended. (Rosalia Wheatley) Disposition <Marky Kirby Cecille - Last Filed: 06/09/22 15:11> Is patient prescribed a controlled substance at d/c from ED?: No Time of Disposition: 20:25 <Rosalia Wheatley - Last Filed: 06/13/22 18:18> Clinical Impression: Influenza A Disposition: HOME SELF-CARE Condition: Stable Instructions (If sedation given, give patient instructions): Influenza (ED) Additional Instructions: Alternate Tylenol and Motrin as needed for body aches and fever control. Increase your intake of fluids. Consider electrolyte solution such as Gatorade or Powerade. Zofran is prescribed for nausea. Tamiflu is antiviral medication used to short duration of influenza illness. Rest. Take it easy. Follow-up with your PCP for a recheck on Thursday if needed. Return to the emergency department with any new, worsening, or concerning symptoms. Prescriptions: Oseltamivir [Tamiflu] 75 mg PO Q12HR #10 cap Ondansetron Odt [Zofran Odt] 4 mg PO Q8HR PRN #10 tab PRN Reason: Nausea Referrals: Saul Muniz MD [Primary Care Provider] - 1-2 days
[2022-06-09 15:28] VITALS: TEMP 98.9
[2022-06-09 15:50] LABS: Basophils % (A) 0 %; Eosinophils % (A) 1 %; HCT 39.4 % (34.0-46.0); HGB 13.4 gm/dL (11.4-16.0); Lymphocytes # (A) 0.4 k/uL (1.0-4.8); Lymphocytes % (A) 9 %; MCH 28.3 pg (25.0-35.0); MCHC 33.9 g/dL (31.0-37.0); MCV 83.4 fL (80.0-100.0); Monocytes # (A) 0.2 k/uL (0-1.0); Monocytes % (A) 5 %; Neutrophils # (A) 3.5 k/uL (1.3-7.7); Neutrophils % (A) 84 %; Platelet Count 206 k/uL (150-450); RBC 4.73 m/uL (3.80-5.40); RDW 12.8 % (11.5-15.5); WBC 4.2 k/uL (3.8-10.6)
[2022-06-09 15:57] LABS: ALT 27 U/L (4-34); AST 36 U/L (14-36); African American GFR (CKD) >90 (>60 ml/min/1.73 sqM); Albumin 4.6 g/dL (3.5-5.0); Alkaline Phosphatase 99 U/L (38-126); Anion Gap 11 mmol/L; Blood Urea Nitrogen 8 mg/dL (7-17); Calcium 9.3 mg/dL (8.4-10.2); Carbon Dioxide 23 mmol/L (22-30); Chloride 101 mmol/L (98-107); Glucose 123 mg/dL (74-99); Non-African American GFR(CKD) >90 (>60 ml/min/1.73 sqM); Potassium 4.1 mmol/L (3.5-5.1); Sodium 135 mmol/L (137-145); Total Bilirubin 0.2 mg/dL (0.2-1.3); Total Protein 7.8 g/dL (6.3-8.2)
--- NOTE | 2022-06-09 16:01 | XR ---
EXAMINATION TYPE: XR chest 2V DATE OF EXAM: 06/09/2022 COMPARISON: 12/30/2017 HISTORY: 51 year-old female shortness of breath and chest pain TECHNIQUE: PA and lateral views FINDINGS: Heart normal size. Aorta and pulmonary vasculature are within normal limits. Focal density medial rig ht upper lobe, probably prominent first rib end. There is some strandy density at the lower lungs. Ot herwise, no consolidation or pleural effusion. IMPRESSION: Some density in the lower lungs favored to represent strandy atelectasis. There is a focal density me dial right upper lobe that probably corresponds to a prominent right anterior first rib end rather th an underlying pulmonary nodule. Short interval follow-up in 6-8 weeks to reassess.
[2022-06-09] MEDS ORDERED: ONDANSETRON 4 MG/2 ML VIAL IVP STA (19:50)
[2022-06-09] MEDS ORDERED: OSELTAMIVIR 75 MG CAP PO STA (19:50)
[2022-06-09] MEDS ORDERED: SODIUM CHLORIDE 0.9% 1,000 ML IV STA (19:50)
[2022-06-09] MEDS ORDERED: MORPHINE SULFATE 2 MG/ML SYRINGE IVP STA (20:22)
[2022-06-09 20:39] VITALS: BP 129/88; PULSE 78; RESP 15
== END 2022-06-09 20:46 | disposition home or self-care (01) ==
LOC: EC 14:44
DX: J10.1 Influenza due to other identified influenza virus with other respiratory manifestations (principal); J44.9 Chronic obstructive pulmonary disease, unspecified; G40.909 Epilepsy, unspecified, not intractable, without status epilepticus; F41.9 Anxiety disorder, unspecified; F12.90 Cannabis use, unspecified, uncomplicated; Z91.030 Bee allergy status; Z91.018 Allergy to other foods; Z88.6 Allergy status to analgesic agent; Z88.8 Allergy status to other drugs, medicaments and biological substances; Z79.899 Other long term (current) drug therapy; Z20.822 Contact with and (suspected) exposure to COVID-19
CPT/HCPCS: 36415; 71046; 80053; 85025; 87636; 99284